=== PATIENT | male | born 1990 | race Two or more races ===

== ENCOUNTER 2018-06-07 15:43 | Emergency (ER) | payer MEDICAID ==
--- NOTE | 2018-06-07 16:35 | EDPHY ---
H & P Time Seen by Provider: 06/07/18 15:51 HPI/ROS: CHIEF COMPLAINT: Right ankle pain HISTORY OF PRESENT ILLNESS: 27-year-old male presents with right ankle pain. 5 days ago he was hiking and twisted his ankle. Difficulty weight-bearing since the injury. Pain is moderate and worsens with weight-bearing. Using a scooter to get around. The no other injury. ROS: No numbness, weakness, excessive bleeding, syncopal episode, other injury. Past Medical/Surgical History: Denies Smoking Status: Never smoked Physical Exam: Alert, pleasant Extremities: Right ankle with swelling over the lateral malleolus. There is no posterior lateral malleolus tenderness, midfoot tenderness, or proximal fifth metatarsal tenderness. The ankle is stable and the Achilles tendon is intact. Vascular: Pedal pulses 2+ Neurologic: Ankle and foot with normal sensation and strength Skin: Intact Constitutional: Initial Vital Signs Temperature (C) 37.1 C 06/07/18 15:47 Heart Rate 84 06/07/18 15:47 Respiratory Rate 16 06/07/18 15:47 Blood Pressure 119/78 06/07/18 15:47 O2 Sat (%) 94 06/07/18 15:47 O2 Delivery Mode Room Air Allergies/Adverse Reactions: No Known Allergies Allergy (Unverified 06/07/18 15:47) Home Medications: Medication Instructions Recorded NK [No Known Home Meds] 06/07/18 Medical Decision Making - Diagnostics Imaging Results: Imaging Impressions Ankle X-Ray 06/07/18 15:52 Impression: No source for pain identified. Departure - Departure Disposition: Home, Routine, Self-Care Clinical Impression: Right ankle sprain Qualifiers: Encounter type: initial encounter Involved ligament of ankle: anterior talofibular ligament Qualified Code(s): S93.491A - Sprain of other ligament of right ankle, initial encounter Condition: Good Instructions: Ankle Sprain (ED), Ankle Stirrup Splint (ED) Additional Instructions: Take Tylenol 650 mg every 4 hours and/or Ibuprofen 600 mg every 8 hours with food as needed for pain. Apply ice for 30 minutes at a time; 2-3 times per day for the next 1-2 days. Follow up with Orthopedics in 1 week if symptoms persist or worsening at which time they will evaluate and recommend with you if conservative management versus adjuvant therapy like further imaging is indicated. The x-rays obtained in the emergency department today demonstrate no evidence of an obvious fracture. Referrals: Oneal Plascencia MD [Medical Doctor] - As per Instructions
[2018-06-07 16:55] VITALS: BP 113/62
== END 2018-06-07 16:54 | disposition home or self-care (01) ==
DX: S93.491A Sprain of other ligament of right ankle, initial encounter (principal); X50.9XXA Other and unspecified overexertion or strenuous movements or postures, initial encounter; Y93.01 Activity, walking, marching and hiking; Y92.828 Other wilderness area as the place of occurrence of the external cause; Y99.9 Unspecified external cause status
CPT/HCPCS: L4350

== ENCOUNTER → 2018-07-18 | Outpatient (CLI) | payer MEDICAID | LOC: FIMAGING 19:50 | PROVIDERS: ATTEND Orthopaedic Surgery | DX: S93.491A Sprain of other ligament of right ankle, initial encounter (principal) ==